=== PATIENT | female | born 1960 | race Caucasian/White ===

== ENCOUNTER 2018-09-02 19:54 | Emergency (ER) | payer BC, OTHER ==
[2018-09-02] MEDS ORDERED: HYDROcodone/ACETAMIN 5-325 MG* 1 TAB PO ONE (22:10)
--- NOTE | 2018-09-02 23:56 | ED ---
Lower Extremity - HPI Summary HPI Summary: Patient complains of fall off of ladder from a height of 8 feet, falling on left side yesterday at 3 PM.. Patient complains of subsequent left hip and left groin pain. Patient is ambulatory, pain with walking and lifting leg. Patient denies any other pain, injury, symptoms. Ibuprofen this a.m. cause some relief. - History of Current Complaint Chief Complaint: EDHipPelvisInjury Stated Complaint: FALL/LT HIP INJURY Time Seen by Provider: 09/02/18 21:35 Hx Obtained From: Patient Mechanism Of Injury: Fall From Height Of: Onset of Pain: Immediate Onset/Duration: Hours Severity Initially: Moderate Severity Currently: Moderate Pain Intensity: 8 Pain Scale Used: 0-10 Numeric Timing: Constant Location: Is Discrete @ Character Of Pain: Aching, Throbbing Associated Signs And Symptoms: Positive: Negative Aggravating Factor(s): Standing, Ambulation, Weight Bearing Alleviating Factor(s): Rest Able to Bear Weight: Yes - Allergies/Home Medications Allergies/Adverse Reactions: Allergies Allergy/AdvReac Type Severity Reaction Status Date / Time No Known Allergies Allergy Verified 09/02/18 19:57 Home Medications: Home Medications Cyclobenzaprine TAB* [Flexeril 10 MG TAB*] 1 tab PO TID 09/02/18 [History Confirmed 09/02/18] Desvenlafaxine Succinate [Pristiq] 75 mg PO DAILY 09/02/18 [History Confirmed ] Meloxicam [Mobic] 15 mg PO DAILY 09/02/18 [History Confirmed 09/02/18] hydrOXYzine HCL TAB* [Atarax TAB 50 MG *] 50 mg PO TID 09/02/18 [History Confirmed 09/02/18] traZODone TAB* [Desyrel TAB*] 50 mg PO BEDTIME 09/02/18 [History Confirmed 09/02] PMH/Surg Hx/FS Hx/Imm Hx Endocrine/Hematology History: Denies: Hx Anticoagulant Therapy History: Denies: Hx Dialysis EENT History: Denies: Hx Deafness Psychiatric History: Denies: Hx Autism Infectious Disease History: No Infectious Disease History: Denies: Traveled Outside the [place] in Last 30 Days - Family History Known Family History: Positive: Non-Contributory - Social History Alcohol Use: None Substance Use Type: Reports: None Smoking Status (MU): Light Every Day Tobacco Smoker Review of Systems Constitutional: Negative Eyes: Negative ENT: Negative Cardiovascular: Negative Respiratory: Negative Gastrointestinal: Negative Genitourinary: Negative Musculoskeletal: Other Skin: Negative Neurological: Negative Psychological: Normal All Other Systems Reviewed And Are Negative: Yes Physical Exam - Summary Physical Exam Summary: Legs are equal length with no internal or external rotation. Tenderness to palpation along left inguinal line. Patient able to flex and extend at bilateral hips, bilateral knees, bilateral ankles. Patient flexes and extends bilateral upper extremities. Full range of motion of neck without indication of pain. No pain with palpation of head, neck, back, chest wall, abdomen, face.. Lung sounds clear to auscultation bilaterally. Triage Information Reviewed: Yes Vital Signs On Initial Exam: Initial Vitals Temp Pulse Resp BP Pulse Ox 99.9 F 80 18 121/67 99 09/02/18 19:58 09/02/18 19:58 09/02/18 19:58 09/02/18 19:58 09/02/18 19:58 Vital Signs Reviewed: Yes Appearance: Positive: Well-Appearing Skin: Positive: Warm Head/Face: Positive: Normal Head/Face Inspection Eyes: Positive: Normal ENT: Positive: Normal ENT inspection Neck: Positive: Supple Respiratory/Lung Sounds: Positive: Clear to Auscultation Cardiovascular: Positive: Normal Abdomen Description: Positive: Nontender Musculoskeletal: Positive: Normal Neurological: Positive: Normal Psychiatric: Positive: Normal AVPU Assessment: Alert - Arsen Coma Scale Best Eye Response: 4 - Spontaneous Best Motor Response: 6 - Obeys Commands Best Verbal Response: 5 - Oriented Coma Scale Total: 15 Diagnostics - Vital Signs Vital Signs Temp Pulse Resp BP Pulse Ox 09/02/18 23:45 99.0 F 74 18 124/66 97 09/02/18 19:58 99.9 F 80 18 121/67 99 - Laboratory Result Diagrams: 09/03/18 00:16 Lab Statement: Any lab studies that have been ordered have been reviewed, and results considered in the medical decision making process. Lower Extremity Course/Dx - Course Course Of Treatment: Patient complains of fall off of ladder from a height of 8 feet, falling on left side yesterday at 3 PM.. Patient complains of subsequent left hip and left groin pain. Patient is ambulatory, pain with walking and lifting leg. Patient denies any other pain, injury, symptoms. Ibuprofen this a.m. = some relief. Physical exam: Legs are equal length with no internal or external rotation. Tenderness to palpation along left inguinal line. Patient able to flex and extend at bilateral hips, bilateral knees, bilateral ankles. Patient flexes and extends bilateral upper extremities. Full range of motion of neck without indication of pain. No pain with palpation of head, neck, back , chest wall, abdomen, face.. Lung sounds clear to auscultation bilaterally. X -ray positive for probable pelvic ramus fracture. CT positive for inferior left pubic ramus fracture and left acetabulum fracture. Patient given crutches , Rx for hydrocodone and follow-up with orthopedics. - Diagnoses Provider Diagnoses: Inferior pubic ramus fracture, Left acetabular fracture Discharge - Sign-Out/Discharge Documenting (check all that apply): Patient Departure - Discharge Plan Condition: Stable Disposition: HOME Prescriptions: HYDROcodone/ACETAMIN 5-325 MG* [[place] 5-325 TAB*] 1 tab PO Q6H PRN 3 Days #10 tab MDD 3-4 tabs PRN Reason: Pain Patient Education Materials: Pelvic Fracture (ED) Referrals: Maritza Hdz MD [Primary Care Provider] - Crystal Serrano MD [Medical Doctor] - Additional Instructions: Use crutches to ambulate. Follow-up with orthopedics Dr. Serrano for further evaluation. Return to the ED for any new or worsening symptoms. - Billing Disposition and Condition Condition: STABLE Disposition: Home
[2018-09-03 00:27] LABS: ABS Basophils 0.1 10^3/ul (0-0.2); ABS Eosinophils 0.4 10^3/ul (0-0.6); ABS Lymphocytes 2.1 10^3/ul (1.0-4.8); ABS Monocytes 0.9 10^3/ul (0-0.8); ABS Neutrophils 3.5 10^3/ul (1.5-7.7); ABS Nucleated RBC 0 10^3/ul; Eosinophil % 5.2 %; Hematocrit 34 % (35-47); Hemoglobin 11.2 g/dl (12.0-16.0); Lymphocyte % 30.3 %; Mean Corpuscular HGB Conc 34 g/dl (31-36); Mean Corpuscular Hemoglobin 28 pg (27-31); Mean Corpuscular Volume 82 fL (80-97); Mean Platelet Volume 6.8 fL (7.4-10.4); Nucleated Red Blood Cells % 0.1; Platelet Count 403 10^3/ul (150-450); Red Blood Count 4.08 10^6/ul (4.00-5.40); Red Cell Distribution Width 14 % (10.5-15); White Blood Count 6.8 10^3/ul (3.5-10.8)
[2018-09-03] MEDS ORDERED: HYDROcodone/ACETAMIN 5-325 MG* 1 TAB PO ONE (00:37)
[2018-09-03 00:47] VITALS: BP 108/60
--- NOTE | 2018-09-03 13:15 | PN ---
Progress Note - Progress Note Date of Service: 09/02/18 Note: Final radiology read today is showing pubic ramus and acetabular fx. Pt. had an addition CT of hip in ER yesterday that picked up these findings. Pt. was treated appropriately. No change in treatment needed.
== END 2018-09-03 00:42 | disposition home or self-care (01) ==
LOC: ED 19:54
DX: S32.592A Other specified fracture of left pubis, initial encounter for closed fracture (principal); M25.552 Pain in left hip; F17.210 Nicotine dependence, cigarettes, uncomplicated; W11.XXXA Fall on and from ladder, initial encounter; Y92.9 Unspecified place or not applicable
CPT/HCPCS: 36415; 72192; 85025; 99283